=== PATIENT | female | born 1940 | race Caucasian/White ===

== ENCOUNTER → 2018-05-11 | Outpatient (CLI) | payer MEDICARE ==
[~2018-05-11] MED LIST: ASPIRIN81 M1 PO; BIOTIN1 M1 PO; PLAVIX75 M1 PO; ROPINIROLE HCL5 MG PO; WOMAN VITAMIN PO; XANAX0.5 MG PO
== END | disposition home or self-care (01) ==
LOC: RAD 14:19
DX: M47.896 Other spondylosis, lumbar region (principal); M41.86 Other forms of scoliosis, lumbar region

== ENCOUNTER → 2018-06-01 | Outpatient (CLI) | payer MEDICARE ==
[2018-06-01] VITALS (11 sets, daily range): BP systolic 110–161; BP diastolic 57–74
[2018-06-01 09:43] LABS: ACT PARTIAL THROMBO TIME 26.6 SECONDS (20.8-31.5)
== END | disposition home or self-care (01) ==
LOC: RAD 05-17 13:00 → CT 05-17 14:00 → RAD 05-29 11:00 → CT 05-29 12:00 → LAB 01:21
PROVIDERS: Orthopaedic Surgery
DX: Z01.812 Encounter for preprocedural laboratory examination (principal); M54.16 Radiculopathy, lumbar region

== ENCOUNTER 2021-03-23 12:49 | Emergency (ER) | payer MEDICARE ==
[~2021-03-23] VITALS: Ht 154.9 cm; Wt 61.7 kg
[2021-03-23 15:35] LABS: BILIRUBIN Negative (Negative); BLOOD Negative (Negative); CLARITY Clear (Clear); COLOR Yellow (Yellow); GLUCOSE Negative (Negative); KETONE 1+ (Negative); LEUKO ESTERASE 1+ (Negative); NITRITE Negative (Negative); PH 6.5 (4.5-8.0); UROBILINOGEN 0.2 E.U./dl (0.0-1.0)
[2021-03-23 15:49] LABS: BACTERIA TRACE; RBC 0-2 rbc/hpf (0-2)
== END 2021-03-23 16:19 | disposition home or self-care (01) ==
LOC: ED 12:49
PROVIDERS: Physician Assistant
DX: R51.9 Headache, unspecified (principal); R11.10 Vomiting, unspecified; M54.5 Low back pain; M54.2 Cervicalgia; G20 Parkinson's disease; Z79.2 Long term (current) use of antibiotics; Z79.899 Other long term (current) drug therapy; Z79.82 Long term (current) use of aspirin; Z90.711 Acquired absence of uterus with remaining cervical stump; Z95.5 Presence of coronary angioplasty implant and graft; W19.XXXA Unspecified fall, initial encounter; Y93.89 Activity, other specified; Y92.89 Other specified places as the place of occurrence of the external cause; Y99.8 Other external cause status

== ENCOUNTER 2022-04-18 22:19 | Inpatient (IN) | payer MEDICARE ==
[~2022-04-18] VITALS: Ht 154.9 cm; Wt 51.3 kg
[2022-04-18 22:21] VITALS: BP 136/58
[2022-04-18] MEDS ORDERED: SINEMET 25-1001 EACH PO (22:23)
[2022-04-18] MEDS ORDERED: PANTOPRAZOLE SO40 MG PO (22:23)
[2022-04-18] MEDS ORDERED: SERTRALINE HYDR50 MG PO (22:24)
[2022-04-18 22:44] LABS: BASO # 0.1 10*3/uL (0.0-0.1); EOS # 0.1 10*3/uL (0.0-0.4); EOS % 2.1 % (1.0-4.0); HEMATOCRIT 31.2 % (37.0-47.0); LYMPH # 1.2 10*3/uL (1.3-4.4); LYMPH % 23.6 % (27.0-41.0); MEAN CELL VOLUME 73.6 fl (81.0-99.0); MEAN CORPUSCULAR HGB 22.6 pg (27.0-31.0); MEAN CORPUSCULAR HGB CONC 30.8 g/dl (33.0-37.0); MEAN PLATELET VOLUME 8.8 fl (9.6-12.3); MONO # 0.5 10*3/uL (0.1-1.0); MONO % 9.6 % (3.0-9.0); NEUT # 3.2 10*3/uL (2.3-7.9); NEUT % 62.7 % (47.0-73.0); PLATELET COUNT AUTOMATED 284 10*3/uL (130-400); RED BLOOD COUNT 4.24 10*6/uL (4.10-5.10); RED CELL DISTRI WIDTH 21.1 % (0-14.5); WHITE BLOOD COUNT 5.1 10*3/uL (4.8-10.8)
[2022-04-18 23:10] LABS: CREATININE 1.08 mg/dL (0.55-1.02); TOTAL PROTEIN 6.5 gm/dL (6.4-8.2)
[2022-04-18 23:13] LABS: ACT PARTIAL THROMBO TIME 24.6 SECONDS (20.0-32.1)
[2022-04-18 23:43] VITALS: BP 119/58
[2022-04-19] VITALS (7 sets, daily range): BP systolic 108–163; BP diastolic 52–67
[2022-04-19 06:09] LABS: ALKALINE PHOSPHATASE 86 U/L (45-117); BUN 20 mg/dl (7-24); CHLORIDE 110 mmol/L (98-107); CHOLESTEROL 188 mg/dL (<200); CREATININE 0.92 mg/dL (0.55-1.02); LDL CHOLESTEROL 102 mg/dL (9-159); POTASSIUM 3.9 mmol/L (3.5-5.1); SGOT/AST 10 IU/L (3-35); SGPT/ALT 13 U/L (12-78); SODIUM 139 mmol/L (136-145); TOTAL PROTEIN 6.7 gm/dL (6.4-8.2); TRIGLYCERIDES 95 mg/dl (<150)
[2022-04-19 06:14] LABS: FREE T4 1.84 ng/dl (0.76-1.46); THYROID STIM HORMONE (HS) 0.606 uIU/ml (0.358-4.75)
[2022-04-19 06:33] LABS: BASO % 0.9 % (0.0-1.0); EOS # 0.1 10*3/uL (0.0-0.4); EOS % 1.9 % (1.0-4.0); LYMPH # 1.6 10*3/uL (1.3-4.4); MEAN CELL VOLUME 73.9 fl (81.0-99.0); MEAN CORPUSCULAR HGB 22.9 pg (27.0-31.0); MEAN CORPUSCULAR HGB CONC 30.9 g/dl (33.0-37.0); MEAN PLATELET VOLUME 9.4 fl (9.6-12.3); MONO # 0.5 10*3/uL (0.1-1.0); MONO % 9.6 % (3.0-9.0); NEUT # 2.5 10*3/uL (2.3-7.9); PLATELET COUNT AUTOMATED 298 10*3/uL (130-400); RED BLOOD COUNT 4.33 10*6/uL (4.10-5.10); WHITE BLOOD COUNT 4.7 10*3/uL (4.8-10.8)
[2022-04-19 06:42] LABS: ACT PARTIAL THROMBO TIME 25.4 SECONDS (20.0-32.1)
[2022-04-19] MEDS ORDERED: ROPINIROLE HYDRO2 MG PO (15:31)
[2022-04-19] MEDS ORDERED: ROPINIROLE HYDRO2 M1 PO (15:32)
== END 2022-04-19 19:31 | disposition home or self-care (01) | DRG 74 ==
LOC: ED 22:19 → EDHOLD 04-19 01:51 → 5E 04-19 01:51
PROVIDERS: Emergency Medicine; Internal Medicine; ADMIT Emergency Medicine; ATTEND Emergency Medicine
DX: G90.8 Other disorders of autonomic nervous system (principal); I25.110 Atherosclerotic heart disease of native coronary artery with unstable angina pectoris; E44.1 Mild protein-calorie malnutrition; D50.9 Iron deficiency anemia, unspecified; E78.5 Hyperlipidemia, unspecified; Z66 Do not resuscitate; G25.81 Restless legs syndrome; R73.9 Hyperglycemia, unspecified; E87.8 Other disorders of electrolyte and fluid balance, not elsewhere classified; G20 Parkinson's disease; E83.51 Hypocalcemia; Z95.5 Presence of coronary angioplasty implant and graft; Z88.1 Allergy status to other antibiotic agents; I25.2 Old myocardial infarction; Z86.73 Personal history of transient ischemic attack (TIA), and cerebral infarction without residual deficits; Z90.49 Acquired absence of other specified parts of digestive tract; R07.9 Chest pain, unspecified

== ENCOUNTER 2025-10-22 15:50 | Inpatient (IN) | payer OTHER ==
[~2025-10-22] VITALS: Ht 152.4 cm; Wt 51.3 kg
[~2025-10-22 15:50] MED LIST changes: +AMLODIPINE BES2.5 MG PO; +AMLODIPINE BESYL5 MG PO; +APAP325 MG PO; +CITALOPRAM10 MG PO; +FUROSEMIDE20 M1 PO; +HYDROCODONE-AC1 EAC1 PO; +MELOXICAM7.5 MG PO; +METOPROLOL SUCC25 M2 PO; +NEURONTIN300 MG PO; -PLAVIX75 M1 PO; +ROPINIROLE HYDRO1 MG PO; +ROPINIROLE HYDRO2 M1 PO; +ROPINIROLE HYDRO2 MG PO; +SERTRALINE HYDR50 MG PO; +TRAZODONE50 MG PO
[2025-10-22 15:54] VITALS: BP 188/90
[2025-10-22 16:17] LABS: BILIRUBIN Negative (Negative); BLOOD Negative (Negative); CLARITY Clear (Clear); COLOR Yellow (Yellow); KETONE Trace (Negative); LEUKO ESTERASE Negative (Negative); NITRITE Negative (Negative); PH 7.5 (4.5-8.0); SPECIFIC GRAVITY 1.015 (1.001-1.030); UROBILINOGEN 0.2 E.U./dl (0.0-1.0)
[2025-10-22 16:22] LABS: BASO # 0.1 10*3/uL (0.0-0.1); BASO % 1.1 % (0.0-1.0); EOS # 0.1 10*3/uL (0.0-0.4); EOS % 1.5 % (1.0-4.0); MEAN CELL VOLUME 87.6 fl (81.0-99.0); MEAN CORPUSCULAR HGB 28.2 pg (27.0-31.0); MEAN PLATELET VOLUME 9.4 fl (9.6-12.3); MONO # 0.5 10*3/uL (0.1-1.0); MONO % 8.2 % (3.0-9.0); NEUT # 3.4 10*3/uL (2.3-7.9); NEUT % 61.9 % (47.0-73.0); NUCLEATED RED BLOOD CELL 0.0 % (0.0-0.0); NUCLEATED RED BLOOD CELL 0.0 10*3/uL (0.0-0.0); PLATELET COUNT AUTOMATED 213 10*3/uL (130-400); RED CELL DISTRI WIDTH 15.3 % (0-14.5)
[2025-10-22 16:35] LABS: BACTERIA TRACE; RBC 0-2 rbc/hpf (0-2); WBC 0-2 wbc/hpf (0-5)
[2025-10-22 16:36] LABS: MUCOUS TRACE
[2025-10-22 16:42] LABS: BUN 17 mg/dl (9-23)
[2025-10-22] MEDS ORDERED: ACETAMINOPHEN 325 MG TAB PO ONE (17:50)
[2025-10-22] MEDS ORDERED: Acetaminophen/Hydrocodone 5 MG/325 MG TABLET PO PRN (20:55)
[2025-10-22] MEDS ORDERED: BISACODYL 5 MG TAB PO PRN (20:55)
[2025-10-22] MEDS ORDERED: ACETAMINOPHEN 325 MG TAB PO PRN (20:55)
[2025-10-22] MEDS ORDERED: DEPAKOTE SPRIN125 MG PO (23:43)
[2025-10-22] MEDS ORDERED: NAMENDA-5 PEG (23:44)
[2025-10-22] MEDS ORDERED: EFFER-K25 MEQ PEG (23:45)
[2025-10-22] MEDS ORDERED: RIVASTIGMINE TAR6 M1 PEG (23:48)
[2025-10-22] MEDS ORDERED: SODIUM-POTASSI1 EACH PEG (23:49)
[2025-10-22] MEDS ORDERED: ALENDRONATE SOD70 M1 PEG (23:52)
[2025-10-23] MEDS ORDERED: PLAVIX75 M1 PO (00:16)
[2025-10-23] MEDS ORDERED: DONEPEZIL HYDROC5 MG PO (00:16)
[2025-10-23] MEDS ORDERED: SERTRALINE HYD100 MG PO (00:16)
[2025-10-23] MEDS ORDERED: SINEMET 25-1001 EACH PO (00:16)
[2025-10-23] MEDS ORDERED: MECLIZINE HCL25 M2 PO (00:16)
[2025-10-23] MEDS ORDERED: PANTOPRAZOLE SO40 MG PO (00:16)
[2025-10-23] MEDS ORDERED: TOPROL XL25 MG PO (00:18)
[2025-10-23] MEDS ORDERED: AMLODIPINE BESYL5 MG PO (00:18)
[2025-10-23] MEDS ORDERED: TYLENOL325 M2 PO (00:19)
[2025-10-23 01:00] VITALS: BP 133/66
[2025-10-23] MEDS ORDERED: GABAPENTIN400 MG PO (01:48)
[2025-10-23] MEDS ORDERED: LASIX20 MG PO (01:50)
[2025-10-23 08:00] VITALS: BP 133/63
[2025-10-23 08:09] LABS: BASO # 0.1 10*3/uL (0.0-0.1); BASO % 0.9 % (0.0-1.0); EOS # 0.1 10*3/uL (0.0-0.4); EOS % 2.3 % (1.0-4.0); MEAN CELL VOLUME 88.3 fl (81.0-99.0); MEAN CORPUSCULAR HGB 27.5 pg (27.0-31.0); MEAN PLATELET VOLUME 9.4 fl (9.6-12.3); MONO # 0.7 10*3/uL (0.1-1.0); MONO % 12.0 % (3.0-9.0); NEUT # 3.6 10*3/uL (2.3-7.9); NEUT % 62.2 % (47.0-73.0); NUCLEATED RED BLOOD CELL 0.0 % (0.0-0.0); NUCLEATED RED BLOOD CELL 0.0 10*3/uL (0.0-0.0); PLATELET COUNT AUTOMATED 199 10*3/uL (130-400); RED CELL DISTRI WIDTH 15.3 % (0-14.5)
[2025-10-23 09:15] LABS: BUN 22 mg/dl (9-23)
[2025-10-23 09:19] LABS: SGPT/ALT < 7 U/L (5-49)
[2025-10-23] MEDS ORDERED: Clopidogrel Hydrogen Sulfate 75 MG TAB PO SCH (10:00)
[2025-10-23] MEDS ORDERED: METOPROLOL SUCCINATE XR 25 MG TAB PO SCH (10:00)
[2025-10-23] MEDS ORDERED: Carbidopa/Levodopa 25/100MG 1 TAB TAB PO SCH (10:00)
[2025-10-23 12:00] VITALS: BP 87/48
[2025-10-23 16:00] VITALS: BP 83/45
[2025-10-23 20:00] VITALS: BP 104/63
[2025-10-23] MEDS ORDERED: GABAPENTIN 400 MG CAP PO SCH (22:00)
[2025-10-24] VITALS: BP 115/64
[2025-10-24 06:27] LABS: BASO # 0.1 10*3/uL (0.0-0.1); BASO % 0.8 % (0.0-1.0); EOS # 0.2 10*3/uL (0.0-0.4); EOS % 2.3 % (1.0-4.0); MEAN CELL VOLUME 88.0 fl (81.0-99.0); MEAN CORPUSCULAR HGB 27.1 pg (27.0-31.0); MEAN PLATELET VOLUME 10.2 fl (9.6-12.3); MONO # 0.6 10*3/uL (0.1-1.0); MONO % 6.6 % (3.0-9.0); NEUT # 6.6 10*3/uL (2.3-7.9); NEUT % 74.8 % (47.0-73.0); NUCLEATED RED BLOOD CELL 0.0 % (0.0-0.0); NUCLEATED RED BLOOD CELL 0.0 10*3/uL (0.0-0.0); PLATELET COUNT AUTOMATED 196 10*3/uL (130-400); RED CELL DISTRI WIDTH 15.8 % (0-14.5)
[2025-10-24 06:44] LABS: BUN 37.0 mg/dl (9-23)
[2025-10-24 08:00] VITALS: BP 114/59
[2025-10-24] MEDS ORDERED: SODIUM CHLORIDE 0.9% 1,000 ML IV ONE (10:35)
[2025-10-24 12:00] VITALS: BP 107/54
[2025-10-24 16:00] VITALS: BP 97/50
[2025-10-24 18:20] LABS: BUN 37.0 mg/dl (9-23)
[2025-10-24 20:00] VITALS: BP 95/48
[2025-10-25] VITALS: BP 103/58
[2025-10-25 06:45] LABS: BUN 31.0 mg/dl (9-23)
[2025-10-25 08:00] VITALS: BP 117/50
[2025-10-25] MEDS ORDERED: SODIUM CHLORIDE 0.9% 1,000 ML IV ONE (09:25)
[2025-10-25 12:00] VITALS: BP 109/59
[2025-10-25 16:00] VITALS: BP 97/59
[2025-10-25 20:00] VITALS: BP 138/71
[2025-10-26] VITALS: BP 161/75
[2025-10-26 02:19] VITALS: BP 147/68
[2025-10-26 06:04] LABS: BASO # 0.1 10*3/uL (0.0-0.1); BASO % 1.1 % (0.0-1.0); EOS # 0.2 10*3/uL (0.0-0.4); EOS % 3.6 % (1.0-4.0); MEAN CELL VOLUME 85.2 fl (81.0-99.0); MEAN CORPUSCULAR HGB 27.1 pg (27.0-31.0); MEAN PLATELET VOLUME 9.9 fl (9.6-12.3); MONO # 0.6 10*3/uL (0.1-1.0); MONO % 11.3 % (3.0-9.0); NEUT # 3.2 10*3/uL (2.3-7.9); NEUT % 57.9 % (47.0-73.0); NUCLEATED RED BLOOD CELL 0.0 % (0.0-0.0); NUCLEATED RED BLOOD CELL 0.0 10*3/uL (0.0-0.0); PLATELET COUNT AUTOMATED 188 10*3/uL (130-400); RED CELL DISTRI WIDTH 15.5 % (0-14.5)
[2025-10-26 06:36] LABS: BUN 23.0 mg/dl (9-23)
[2025-10-26 08:00] VITALS: BP 159/67
[2025-10-26 12:00] VITALS: BP 146/59
[2025-10-26] MEDS ORDERED: SODIUM CHLORIDE 0.9% 250 ML IV ONE (14:30)
== END 2025-10-26 18:20 | DRG 682 ==
LOC: ED 15:50 → EDHOLD 19:39 → 5E 19:39 → EDHOLD 20:54 → 5E 10-23 00:05
PROVIDERS: Nurse Practitioner Family; Student in an Organized Health Care Education/Training Program; ADMIT Student in an Organized Health Care Education/Training Program; ATTEND Student in an Organized Health Care Education/Training Program
DX: N17.0 Acute kidney failure with tubular necrosis (principal); J96.21 Acute and chronic respiratory failure with hypoxia; J90 Pleural effusion, not elsewhere classified; G90.9 Disorder of the autonomic nervous system, unspecified; G20.A1 Parkinson's disease without dyskinesia, without mention of fluctuations; K21.9 Gastro-esophageal reflux disease without esophagitis; F41.9 Anxiety disorder, unspecified; I50.9 Heart failure, unspecified; Z66 Do not resuscitate; G62.9 Polyneuropathy, unspecified; I25.10 Atherosclerotic heart disease of native coronary artery without angina pectoris; E78.5 Hyperlipidemia, unspecified; R26.2 Difficulty in walking, not elsewhere classified; R35.0 Frequency of micturition; G25.81 Restless legs syndrome; Z95.810 Presence of automatic (implantable) cardiac defibrillator; I25.2 Old myocardial infarction; Z86.73 Personal history of transient ischemic attack (TIA), and cerebral infarction without residual deficits; Z90.710 Acquired absence of both cervix and uterus; Z80.0 Family history of malignant neoplasm of digestive organs; Z88.8 Allergy status to other drugs, medicaments and biological substances